=== PATIENT | female | born 2000 | race Caucasian/White ===

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

== ENCOUNTER → 2020-03-13 | Outpatient (CLI) | payer BC, SELFPAY ==
[2020-03-13 21:02] LABS: Chlamydia Trachomatis by PCR Negative (Negative); Neisserai gonorrhoeae by PCR Negative (Negative); Probe Check PASS; Sample Adequacy Control PASS; Specimen Processing Control PASS
== END | disposition home or self-care (01) ==
LOC: LABSPEC 16:17
PROVIDERS: PCP Pediatrics; Visit Provider Obstetrics & Gynecology
DX: Z11.3 Encounter for screening for infections with a predominantly sexual mode of transmission (principal)
CPT/HCPCS: 87491; 87591

== ENCOUNTER → 2020-04-30 | Outpatient (CLI) | payer BC, SELFPAY ==
--- NOTE | 2020-05-01 08:36 | RAD_ITS ---
STUDY: AIR-CONTRAST UPPER GI STUDY REASON FOR EXAM: Female, 19 years old. Vomiting FLUOROSCOPY TIME (if supplied): (1:12) minutes/seconds. 21 images. TECHNIQUE: Barium pill swallow with sips of water is performed at the beginning of the study without difficulty. Multiple barium swallows were performed under fluoroscopic monitoring. Multiple views of the esophagus, the stomach and the duodenum were performed. COMPARISON: None. FINDINGS: The esophagus appears normal in size and shape it shows unremarkable mucosal pattern. There is no evidence of hiatal hernia or abnormal vascular compression. The stomach is normal in size shape and position the gastric mucosal folds are unremarkable. The duodenum and bulb and duodenal loop are unremarkable. The duodenal jejunal junction is in normal anatomic position to the left of the vertebral body of T12. RAD/Upper GI Dual Contrast IMPRESSION: Unremarkable study. Electronically Signed: Eugenia Hinton, at 10:13 EDT Tel , Service support ,
== END | disposition home or self-care (01) ==
LOC: RAD 08:26
PROVIDERS: PCP Pediatrics; Referring Provider Nurse Practitioner Adult Health; Visit Provider Nurse Practitioner Adult Health
DX: R19.4 Change in bowel habit (principal); R11.0 Nausea
CPT/HCPCS: 74246

== ENCOUNTER → 2022-05-01 | Outpatient (CLI) | payer BC, SELFPAY ==
[2022-05-07 08:08] LABS: HPV Reflexed? NOT INDICATED
== END | disposition home or self-care (01) ==
LOC: WOBLAB 11:44
PROVIDERS: PCP Pediatrics; Visit Provider Obstetrics & Gynecology
DX: Z12.4 Encounter for screening for malignant neoplasm of cervix (principal)
CPT/HCPCS: 88175; G0145

== ENCOUNTER → 2023-08-12 | Outpatient (CLI) | payer BC, SELFPAY ==
[2023-08-12 13:03] LABS: Internal QC Validated? YES +Cl - CLEAR BKGD; Pregnancy, Urine Negative Negative; Record Kit Lot#,Urine Preg HCG0000667200
== END | disposition home or self-care (01) ==
LOC: MTLAB 09:46
PROVIDERS: Referring Provider Physician Assistant Medical; Visit Provider Physician Assistant Medical
DX: L70.0 Acne vulgaris (principal); Z79.899 Other long term (current) drug therapy
CPT/HCPCS: 81025

== ENCOUNTER → 2023-10-28 | Outpatient (CLI) | payer BC, SELFPAY ==
--- OUTSIDE RECORDS SUMMARY | 2023-10-28 09:03 | XMS RPT_ITS | CCD ---
Author Name Unknown Address [id number] [place] [address] Organization [facility] Care Team Providers Care Mat Man Name Role Phone Vincent Powell MD Primary Care Provider VINCENT POWELL Primary Care Unavailable BRADLEY WHITFIELD Referring Unavailable VINCENT POWELL Primary Care Unavailable BRADLEY WHITFIELD Attending Unavailable VINCENT POWELL MD Consulting Unavailable BRADLEY WHITFIELD Admitting Unavailable BRADLEY WHITFIELD Primary Care Unavailable BRADLEY WHITFIELD Attending Unavailable PROVIDER, UNKNOWN Consulting Unavailable [facility] Admitting Unavailable VINCENT POWELL MD Consulting Unavailable FAREED JURADO NP Primary Care Unavailable [facility] Attending Unavailable PROVIDER, UNKNOWN Consulting Unavailable [facility] Admitting Unavailable [facility] Primary Care Unavailable VINCENT POWELL MD Consulting Unavailable [facility] Attending Unavailable PROVIDER, UNKNOWN Consulting Unavailable VINCENT POWELL MD Consulting Unavailable GOAD, RABIA PA%C Admitting Unavailable GOAD, RABIA PA%C Primary Care Unavailable GOAD, RABIA PA%C Attending Unavailable PROVIDER, UNKNOWN Consulting Unavailable [facility] Attending Unavailable [facility] Admitting Unavailable VINCENT POWELL MD Consulting Unavailable [facility]ED JURAD[facility] Primary Care Unavailable PROVIDER, UNKNOWN Consulting Unavailable [facility] Admitting Unavailable VINCENT POWELL MD Consulting Unavailable [facility] Primary Care Unavailable [facility] Attending Unavailable PROVIDER, UNKNOWN Consulting Unavailable Medications Completed/Discontinued Medications Medication Drug Class(es) Dates Sig (Normalized) Sig (Original) drospirenone / Ethinyl Estradiol (3 sources) Progestin, Estrogen take 1 tablet by mouth once daily Drospirenone-Ethiny l Estradiol (GIANVI, 28,) 3-0.02 mg per tablet Take 1 tablet by mouth once daily. 0 Active Problems Active Problems Problem Classification Problem Date Documented Date Episodic/Chronic Allergic reactions (3 sources) Atopic dermatitis; Translations: [Other atopic dermatitis] Onset: 10-24-2009 10-24-2009 Chronic Coagulation and hemorrhagic disorders (5 sources) Thrombocytopenic disorder; Translations: [Thrombocytopenia, unspecified] Onset: 06-11-2023 07-06-2023 Chronic Diseases of white blood cells (2 sources) Neutropenic disorder; Translations: [Other neutropenia] Onset: 07-06-2023 07-06-2023 Chronic Past or Other Problems Problem Classification Problem Date Documented Da te Episodic/Chronic Allergic reactions (3 sources) Contact dermatitis; Translations: [Unspecified contact dermatitis, unspecified cause] Onset: 10-24-2009 10-24-2009 Episodic Headache; including migraine (3 sources) Chronic headache disorder; Translations: [Chronic headache] Onset: 10-05-2015 10-05-2015 Episodic Miscellaneous mental health disorders (3 sources) Depressed mood; Translations: [Other symptoms and signs involving emotional state] Onset: 10-05-2015 10-05-2015 Episodic Other aftercare (1 source) Other rat exterminator (current) drug therapy; Translations: [Other rat exterminator (current) drug therapy] Onset: 06-02-2023 Episodic Other skin disorders (3 sources) Acne vulgaris; Translations: [Acne vulgaris] Onset: 10-24-2009 10-24-2009 Episodic Other skin disorders (3 sources) Asteatosis cutis; Translations: [Xerosis cutis] Onset: 10-24-2009 10-24-2009 Episodic Other skin disorders (3 sources) Keratosis pilaris; Translations: [Other specified epidermal thickening] Onset: 10-24-2009 10-24-2009 Episodic Other skin disorders (3 sources) Acne vulgaris; Translations: [Acne vulgaris] Onset: 06-02-2023 Episodic Skin and subcutaneous tissue infections (3 sources) Pyoderma; Translations: [Pyoderma] Onset: 10-24-2009 10-24-2009 Episodic Results Test Name Value Interpretation Reference Range Facil ity Vital Signs Date Time Vital Sign Value Performing Clinician Faci lity 07-06-2023 12:54-0400 Body height 175.3 cm Bradley Whitfield MD Work Phone: [facility] 07-06-2023 12:54-0400 Body temperature 97.81 [degF] Bradley Whitfield MD Work Phone: [facility] 07-06-2023 12:54-0400 Body weight 88.45 kg Bradley Whitfield MD Work Phone: [facility] 07-06-2023 12:54-0400 Diastolic blood pressure 70 mm[Hg] Bradley Whitfield MD Work Phone: [facility] 07-06-2023 12:54-0400 Heart rate 60 /min Bradley Whitfield MD Work Phone: [facility] 07-06-2023 12:54-0400 SaO2% (BldA) [Mass fraction] 98 % Bradley Whitfield MD Work Phone: [facility] 07-06-2023 12:54-0400 Systolic blood pressure 125 mm[Hg] Bradley Whitfield MD Work Phone: [facility] Encounters Encounter Date Encounter Type Care Provider Facility Start: 09-21-2023 End: 09-21-2023 ambulatory VINCENT MOON [facility] Start: 09-18-2023 End: 09-18-2023 ambulatory [facility] Start: 07-06-2023 Telephone encounter Bradley garza MD Work Phone: Hematology/Oncology Start: 07-06-2023 End: 07-07-2023 ambulatory Bradley Whitfield MD Work Phone: Hematology/Oncology Plan of Treatment Date Care Activity Detail Author Start: 02-19-2033 Urine microalbumin profile DTaP,Tdap,Td Vaccine (8 - Td or Tdap) [facility] Start: 07-06-2023 End: 10-05-2023 MOLLY BY IFA SCREEN [facility] Work Phone: Immunizations Immunization Date Immunization Notes Care Provider Fa cili 06-27-2022 influenza virus vacc ine, unspecified formulation Bradley Whitfield MD Work Phone: [facility] 08-30-2021 COVID-19 original vaccine, full dose, monovalent (MODERNA) Bradley Whitfield MD Work Phone: [facility] Work Phone: 07-04-2021 influenza virus vacc ine, unspecified formulation Bradley Whitfield MD Work Phone: [facility] Work Phone: 06-06-2020 influenza, seasonal, injectable Bradley Whitfield MD Work Phone: [facility] 06-22-2019 influenza, seasonal, injectable Bradley Whitfield MD Work Phone: [facility] Work Phone: 06-25-2018 influenza virus vacc ine, live, attenuated, for intranasal use Bradley Whitfield MD Work Phone: [facility] Work Phone: 07-07-2017 influenza virus vacc ine, unspecified formulation Bradley Whitfield MD Work Phone: [facility] Work Phone: 05-07-2017 meningococcal polysaccharide (groups A, C, Y and W-135) diphtheria toxoid conjugate vaccine (MCV4P) Bradley Whitfield MD Work Phone: [facility] Work Phone: 06-27-2016 influenza, injectabl e, quadrivalent, contains preservative Bradley Whitfield MD Work Phone: [facility] Work Phone: 07-02-2015 influenza, injectabl e, quadrivalent, contains preservative Bradley Whitfield MD Work Phone: [facility] 06-19-2014 influenza, live, intranasal, quadrivalent Bradley Whitfield MD Work Phone: [facility] Work Phone: 08-30-2013 human papilloma viru s vaccine, quadrivalent Bradley Whitfield MD Work Phone: [facility] Work Phone: 06-28-2013 influenza virus vacc ine, live, attenuated, for intranasal use Bradley Whitfield MD Work Phone: [facility] Work Phone: 04-25-2013 human papilloma viru s vaccine, quadrivalent Bradley Whitfield MD Work Phone: [facility] Work Phone: 12-15-2012 human papilloma viru s vaccine, quadrivalent Bradley Whitfield MD Work Phone: [facility] Work Phone: 12-15-2012 Meningococcal, MCV4, unspecified conjugate formulation(groups A, C, Y and W-135) Bradley Whitfield MD Work Phone: [facility] Work Phone: 12-15-2012 tetanus toxoid, redu david diphtheria toxoid, and acellular pertussis vaccine, adsorbed Bradley Whitfield MD Work Phone: [facility] Work Phone: 07-02-2012 influenza virus vacc ine, unspecified formulation Bradley Whitfield MD Work Phone: [facility] Work Phone: 03-30-2008 hepatitis A vaccine, unspecified formulation Bradley Whitfield MD Work Phone: [facility] Work Phone: 09-20-2007 hepatitis A vaccine, unspecified formulation Bradley Whitfield MD Work Phone: [facility] Work Phone: 01-27-2006 diphtheria, tetanus toxoids and acellular pertussis vaccine Bradley Whitfield MD Work Phone: [facility] Work Phone: 01-27-2006 measles, mumps and rubella virus vaccine Bradley Whitfield MD Work Phone: [facility] Work Phone: 01-27-2006 poliovirus vaccine, inactivated Bradley Whitfield MD Work Phone: [facility] Work Phone: 10-05-2002 pneumococcal conjuga te vaccine, 7 valent Bradley Whitfield MD Work Phone: [facility] Work Phone: 11-19-2001 diphtheria, tetanus toxoids and acellular pertussis vaccine Bradley Whitfield MD Work Phone: [facility] Work Phone: 11-19-2001 haemophilus influenz ae type b vaccine, HbOC conjugate Bradley Whitfield MD Work Phone: [facility] Work Phone: 11-19-2001 hepatitis B vaccine, pediatric or pediatric/adolescent dosage Bradley Whitfield MD Work Phone: [facility] Work Phone: 08-18-2001 measles, mumps and rubella virus vaccine Bradley Whitfield MD Work Phone: [facility] Work Phone: 08-18-2001 poliovirus vaccine, inactivated Bradley Whitfield MD Work Phone: [facility] Work Phone: 05-18-2001 pneumococcal conjuga te vaccine, 7 valent Bradley Whitfield MD Work Phone: [facility] Work Phone: 04-29-2001 diphtheria, tetanus toxoids and acellular pertussis vaccine Bradley Whitfield MD Work Phone: [facility] Work Phone: 02-18-2001 diphtheria, tetanus toxoids and acellular pertussis vaccine Bradley Whitfield MD Work Phone: [facility] Work Phone: 02-18-2001 haemophilus influenz ae type b vaccine, HbOC conjugate Bradley Whitfield MD Work Phone: [facility] Work Phone: 02-18-2001 hepatitis B vaccine, pediatric or pediatric/adolescent dosage Bradley Whitfield MD Work Phone: [facility] Work Phone: 02-18-2001 poliovirus vaccine, inactivated Bradley Whitfield MD Work Phone: [facility] Work Phone: 02-16-2001 pneumococcal conjuga te vaccine, 7 valent Bradley Whitfield MD Work Phone: [facility] Work Phone: 01-12-2001 chicken pox (disease) Bradley ernst MD Work Phone: [facility] Work Phone: 2000 diphtheria, tetanus toxoids and acellular pertussis vaccine Bradley Whitfield MD Work Phone: [facility] Work Phone: 2000 haemophilus influenz ae type b vaccine, HbOC conjugate Bradley Whitfield MD Work Phone: [facility] Work Phone: 2000 hepatitis B vaccine, pediatric or pediatric/adolescent dosage Bradley Whitfield MD Work Phone: [facility] Work Phone: 2000 poliovirus vaccine, inactivated Bradley Whitfield MD Work Phone: [facility] Work Phone: 2000 pneumococcal conjuga te vaccine, 7 valent Bradley Whitfield MD Work Phone: [facility] Work Phone: Payers Date Payer Category Payer Unknown [employer] PPO OOS [id number] 2015-Present [phone] [address] [place] [address] PPO [id number] 2015 Unknown [id number] 2000 Unknown [id number] 2000 Unknown [id number] 2000 Unknown [id number] 2000 Unknown [id number] 1971 Unknown [id number] 1971 Unknown [id number] Social History Date Type Detail Facility Tobacco smoking stat [facility] Never smoked tobacco [facility] Start: 10-26-2020 End: 07-06-2023 Alcohol intake Current non-drinker of alcohol (finding) [facility] Start: 08-22-2020 End: 10-26-2020 History of Social function [facility] Start: 08-22-2020 End: 10-26-2020 Tobacco use panel [facility] Adult Depression Screening Assessment 2 [facility] Start: 2000 Sex Assigned At Female C [facility] Start: 04-18-2020 Gender identity Identifies as female gender (finding) [facility] Start: 04-18-2020 Sexual orientation Heterosexual (fin ding) [facility] Note 07-06-2023 Telephone Encounter - Zuly Boone LISW - 07/06/2023 4:08 PM EDTTelephone Encounter - Dalia Metcalf LPN - 07/06/2023 3:58 PM EDT Note Date & Type Note Facility 07-06-2023 Miscellaneous Notes Formattin g of this note might be different from the original. Letter signed and given to SARAH to fax. WILMER Dailey-Magen Spoke with Dr. Whitfield, pt. Has been cleared. SW is get letter typed up and will get faxed to [employer]. Letter faxed. Pt. Notified. Dalia Metcalf LPN Patient is requesting a letter to be sent to Dr. Lv Buck - stating that patient is cleared to go back on Accutane. Please fax to [phone]. Patient states they need letter by end of day documented in this encounter [facility] Progress note 07-06-2023 Note Date & Type Note Facility 07-06-2023 Note HNO ID: [id number] Author: Bradley Whitfield MD Service: ? Author Type: Physician Type: Progress Notes Filed: 07/06/2023 4:27 PM Note Text: HISTORY OF PRESENT ILLNESS: Helen Wolf is a 22 year old female Periods irreg, not typically heavy. Was planing accutane, pre treatment cbc was abnormal. Here for evaluation. Did a week course of predisne, but platelets had normalized prior to that. Cbc today normal. She bruises easily, has pictures of her bruises, backs of thighs at one point were quite pronounced. Periods light. Occ drip nose bleed. Meds reviewed, not taking buspirone. CLINICAL IMPRESSION: Thrombocytopenia transient, also leukopenia transient. Bruising, but no other indication of coagulopathy RECOMMENDATION/PLAN: 1. Other labs as ordered 2. She is clear to take accutane 3. She'll get a cbc for me if bruising occurs again Written and verbal health teaching given to patient, patient verbalizes understanding and agrees with treatment plan. PAST MEDICAL HISTORY Diagnosis Date Migraines PMH - PAST MEDICAL HISTORY OF 12/26/2005 normal color vision PMH - PAST MEDICAL HISTORY OF age 6 years broken right hand - Dr Wolf - ortho Respiratory syncytial virus (RSV) PAST SURGICAL HISTORY Procedure Laterality Date TYMPANOSTOMY LOCAL/TOPICAL ANESTHESIA 09/23/01 FAMILY HISTORY Problem Relation Age of Onset other (ITP) Mother Blood Clots Father No Known Problems Sister No Known Problems Brother No Known Problems Brother No Known Problems Maternal Grandmother No Known Problems Maternal Grandfather No Known Problems Paternal Grandmother Hypertension Paternal Grandfather Social History Tobacco Use Smoking status: Never Smokeless tobacco: Never Vaping Use Vaping Use: Never used Substance Use Topics Alcohol use: No Drug use: No ALLERGIES: ALLERGIES No Known Allergies CURRENT OUTPATIENT MEDICATIONS: rizatriptan (MAXALT) 10 mg tablet Take 1 tablet by mouth as needed. May repeat in 2 hours if needed. May take 2 doses of Maxalt in one day, 4 doses in 2 consecutive days, no more than 8 doses per month. sertraline (ZOLOFT) 100 mg tablet Take 1.5 tablets by mouth once daily. Drospirenone-Ethinyl Estradiol (GIANVI, 28,) 3-0.02 mg per tablet Take 1 tablet by mouth once daily. REVIEW OF SYSTEMS: GENERAL: No fever, night sweats, weight loss or malaise. All other reviewed and negative other than HPI. PHYSICAL EXAMINATION: VITAL SIGNS: BP 125/70 Pulse 60 Temp (Src) 97.8 (Temporal) Ht 5' 9 (1.75m) Wt 195 lb (88.5kg) SpO2 98% LMP 06/22/2020 BMI 28.78 kg/(m2). GENERAL APPEARANCE: Well appearing, in no acute distress, alert and oriented x3, well-hydrated, well nourished. I spent a total of 45 minutes on the date of the service which included preparing to see the patient, [id number] patient care, completing clinical documentation, obtaining and/or reviewing separately obtained history, performing a medically appropriate examination, counseling and educating the patient/family/caregiver, ordering medications, tests, or procedures, independently interpreting results (not separately reported), and communicating results to the patient/family/caregiver. Electronically Signed: Bradley Whitfield MD July 06, 2023 1:13 PM [facility] History of Present illness Narrative 07-06-2023 Bradley Whitfield MD - 07/06/2023 1:09 PM EDT Note Date & Type Note Facility 07-06-2023 History of Presen t illness Narrative HISTORY OF PRESENT ILLNESS: Helen Wolf is a 22 year old female Periods irreg, not typically heavy. Was planing accutane, pre treatment cbc was abnormal. Here for evaluation. Did a week course of predisne, but platelets had normalized prior to that. Cbc today normal. She bruises easily, has pictures of her bruises, backs of thighs at one point were quite pronounced. Periods light. Occ drip nose bleed. Meds reviewed, not taking buspirone. CLINICAL IMPRESSION: Thrombocytopenia transient, also leukopenia transient. Bruising, but no other indication of coagulopathy RECOMMENDATION/PLAN: 1. Other labs as ordered 2. She is clear to take accutane 3. She'll get a cbc for me if bruising occurs again Written and verbal health teaching given to patient, patient verbalizes understanding and agrees with treatment plan. PAST MEDICAL HISTORY Diagnosis Date Migraines PMH - PAST MEDICAL HISTORY OF 12/26/2005 normal color vision PMH - PAST MEDICAL HISTORY OF age 6 years broken right hand - Dr Wolf - ortho Respiratory syncytial virus (RSV) PAST SURGICAL HISTORY Procedure Laterality Date TYMPANOSTOMY LOCAL/TOPICAL ANESTHESIA 09/23/01 FAMILY HISTORY Problem Relation Age of Onset other (ITP) Mother Blood Clots Father No Known Problems Sister No Known Problems Brother No Known Problems Brother No Known Problems Maternal Grandmother No Known Problems Maternal Grandfather No Known Problems Paternal Grandmother Hypertension Paternal Grandfather Social History Tobacco Use Smoking status: Never Smokeless tobacco: Never Vaping Use Vaping Use: Never used Substance Use Topics Alcohol use: No Drug use: No ALLERGIES: ALLERGIES No Known Allergies CURRENT OUTPATIENT MEDICATIONS: rizatriptan (MAXALT) 10 mg tablet Take 1 tablet by mouth as needed. May repeat in 2 hours if needed. May take 2 doses of Maxalt in one day, 4 doses in 2 consecutive days, no more than 8 doses per month. sertraline (ZOLOFT) 100 mg tablet Take 1.5 tablets by mouth once daily. Drospirenone-Ethinyl Estradiol (GIANVI, 28,) 3-0.02 mg per tablet Take 1 tablet by mouth once daily. REVIEW OF SYSTEMS: GENERAL: No fever, night sweats, weight loss or malaise. All other reviewed and negative other than HPI. PHYSICAL EXAMINATION: VITAL SIGNS: BP 125/70 Pulse 60 Temp (Src) 97.8 (Temporal) Ht 5' 9 (1.75m) Wt 195 lb (88.5kg) SpO2 98% LMP 06/22/2020 BMI 28.78 kg/(m^2). GENERAL APPEARANCE: Well appearing, in no acute distress, alert and oriented x3, well-hydrated, well nourished. I spent a total of 45 minutes on the date of the service which included preparing to see the patient, [id number] patient care, completing clinical documentation, obtaining and/or reviewing separately obtained history, performing a medically appropriate examination, counseling and educating the patient/family/caregiver, ordering medications, tests, or procedures, independently interpreting results (not separately reported), and communicating results to the patient/family/caregiver. Electronically Signed: Bradley Whitfield MD July 06, 2023 1:13 PM documented in this encounter [facility] Note 06-17-2023 Telephone Encounter - Carla Holbrook - 06/17/2023 3:39 PM EDTTelephone Encounter - Matilda Lucas - 06/17/2023 3:29 PM EDT Note Date & Type Note Facility 06-17-2023 Miscellaneous Notes Formattin g of this note might be different from the original. Scheduled with patient Received referral from Nurse- Schedule next new with DX: THROMBOCYTOPENIA REF PROV: FAREED CHANMIGUEL ANGELR INS: [employer] CARD 1st Attempt When pt returns call please schedule next new with documented in this encounter [facility] Evaluation note Note Date & Type Note Facility documented in this encounter [facility] Summary Purpose Family History No Family History Records FoundNo Family History Records FoundNo Family History Records Found Advance Directives No Advanced Directives Records FoundNo Advanced Directives Records FoundNo Advanced Directives Records Found Additional Source Comments INFORMATION SOURCE (unrecogn ized section and content) DATE CREATED AUTHOR AUTHOR'S ORGANIZ ATION 07/10/2023 [facility] DATE CREATED AUTHOR AUTHOR'S ORGANIZ ATION 09/21/[address] [facility] [facility] [address] Source Comments (unrecognize d section and content) In the event this informatio n is protected by the Federal Confidentiality of Alcohol and Drug Abuse Patient Records regulations: The Federal rules restrict any use of the information to criminally investigate or prosecute any alcohol or drug abuse patient.[facility] the event this information is protected by the Federal Confidentiality of Alcohol and Drug Abuse Patient Records regulations: The Federal rules restrict any use of the information to criminally investigate or prosecute any alcohol or drug abuse patient.[facility] the event this information is protected by the Federal Confidentiality of Alcohol and Drug Abuse Patient Records regulations: The Federal rules restrict any use of the information to criminally investigate or prosecute any alcohol or drug abuse patient.[facility] Reason for Visit (unrecogniz ed section and content) Reason Comments New Patient Evaluation Care Teams (unrecognized sec tion and content) Mat Man Relationship Specialty Start Date End Date Vincent Powell MD [address] [place] [address] PCP - General 07/08/02 Mat Man Relationship Specialty Start Date End Date Vincent Powell MD [address] [place] [address] PCP - General 07/08/02 FOR RECORDS PERTAINING TO PATIENTS WHO ARE OR HAVE BEEN ENROLLED IN A CHEMICAL DEPENDENCY/SUBSTANCEABUSE PROGRAM, SOME INFORMATION MAY BE OMITTED. This clinical summary was aggregated from multiple sources. Caution should be exercised in using it in the provision of clinical care. This summary normalizes information from multiple sources, and as a consequence, information in this document may materially change the coding, format and clinical context of patient data. In addition, data may be omitted in some cases. CLINICAL DECISIONS SHOULD BE BASED ON THE PRIMARY CLINICAL RECORDS. [facility]. provides no warranty or guarantee of the accuracy or completeness of information in this document.
[2023-10-28 10:25] LABS: AST(SGOT) 38 U/L (15-37); Alanine Aminotransfer ALT/SGPT 37 U/L (13-56); Cholesterol 161 mg/dL (200); High Density Lipoprotein 61 mg/dL; Triglycerides 84 mg/dL; Very Low Density Lipoprotein 17 mg/dL (5-40)
== END | disposition home or self-care (01) ==
PROVIDERS: Referring Provider Physician Assistant Medical; Visit Provider Physician Assistant Medical
DX: Z79.899 Other long term (current) drug therapy (principal)
CPT/HCPCS: 36415; 80061; 84450; 84460